=== PATIENT | male | born 1980 ===

== ENCOUNTER 2017-04-06 13:42 | Emergency (ER) | payer OTHER ==
[2017-04-06 13:49] VITALS: RESP 18; TEMP 98.2; O2SAT 98
--- NOTE | 2017-04-06 15:14 | C.PDOC ---
History Of Present Illness 36-year-old male, presents to the emergency department with complaints of one week duration of left upper dental pain. Over the past two days, he developed swelling t the left upper lip area. Denies fever, trauma. Time Seen by Provider: 04/06/17 14:06 Chief Complaint (Nursing): Dental Pain History Per: Patient History/Exam Limitations: no limitations Onset/Duration Of Symptoms: Days Current Symptoms Are (Timing): Still Present Severity: Moderate Past Medical History Reviewed: Historical Data, Nursing Documentation, Vital Signs Vital Signs: Last Vital Signs Temp 98.2 F 04/06/17 15:19 Pulse 86 04/06/17 15:19 Resp 18 04/06/17 15:19 BP 153/92 H 04/06/17 15:19 Pulse Ox 98 04/06/17 18:18 - Medical History PMH: No Chronic Diseases Family History: States: No Known Family Hx - Social History Hx Alcohol Use: Yes Hx Substance Use: No - Immunization History Hx Tetanus Toxoid Vaccination: No Hx Influenza Vaccination: No Hx Pneumococcal Vaccination: No Review Of Systems Except As Marked, All Systems Reviewed And Found Negative. Constitutional: Negative for: Fever, Chills ENT: Positive for: Other (tooth pain) Respiratory: Negative for: Cough, Shortness of Breath Gastrointestinal: Negative for: Nausea, Vomiting Musculoskeletal: Negative for: Back Pain Physical Exam - Physical Exam Appears: Non-toxic, No Acute Distress Skin: Warm, Dry, No Rash Head: Atraumatic, Normacephalic Eye(s): bilateral: Normal Inspection, PERRL Nose: Normal Oral Mucosa: Moist Teeth: Tender To Palpation (Tenderness to 12th tooth with mild swelling to lower cheek.) Neck: Normal ROM Cardiovascular: Rhythm Regular, No Murmur Respiratory: Normal Breath Sounds, No Accessory Muscle Use ED Course And Treatment O2 Sat by Pulse Oximetry: 98 Disposition - Disposition Referrals: [facility] [Outside] Disposition: HOME/ ROUTINE Disposition Time: 15:12 Condition: GOOD Additional Instructions: Follow up with the Dentist within 1-2 days without fail. return if worsened.d Prescriptions: Amoxicillin [Amoxil 500 mg Cap] 500 mg PO TID #29 cap Ibuprofen [Motrin Tab] 800 mg PO TID #20 tab traMADol [Ultram] 50 mg PO Q6 PRN #15 tab PRN Reason: Pain Instructions: Dental Abscess (ED) Forms: [facility] (Wolof) Print Language: [place] - Clinical Impression Clinical Impression: Dental abscess - Scribe Statement The provider has reviewed the documentation as recorded by the Scribe (Tari Grant) All medical record entries made by the Scribe were at my direction and personally dictated by me. I have reviewed the chart and agree that the record accurately reflects my personal performance of the history, physical exam, medical decision making, and the department course for this patient. I have also personally directed, reviewed, and agree with the discharge instructions and disposition.
[2017-04-06 15:20] VITALS: BP 153/92; PULSE 86
== END 2017-04-06 15:19 | disposition home or self-care (01) ==
LOC: MERGE 13:42 → C.ER 13:42
DX: K04.7 Periapical abscess without sinus (principal)